=== PATIENT | male | born 1970 | race Caucasian/White ===

== ENCOUNTER 2021-04-27 10:29 | Emergency (ER) | payer SELFPAY ==
--- NOTE | ~2021-04-27 | XR_ITS ---
EXAMINATION: XR foot RT 2V, XR ankle RT 2V EXAM DATE: 04/27/2021 12:15 INDICATION: Initial encounter following injury, with pain of the right foot, ankle. TECHNIQUE: Right foot frontal and lateral projections. Right ankle frontal and lateral projections. There is no prior study for comparison. FINDINGS: Acute closed posttraumatic comminuted fractures through the right calcaneus extending towa rd the posterior aspect of the subtalar joint. Up to 5 mm gap between portions of fracture fragments. The ankle mortise appears intact. Tarsal, metatarsal bones, forefoot are unremarkable. IMPRESSION: Comminuted right calcaneal fracture; orthopedic consult. Reviewed, dictated and finalized at location A. IMPRESSION: Comminuted right calcaneal fracture; orthopedic consult.
[2021-04-27] MEDS: KETOROLAC (*BKC) 60 MG/2 ML VIAL IM (12:05)
[2021-04-27 12:20] VITALS: BP 135/80; PULSE 60; RESP 20; TEMP 36.9; O2SAT 100
--- NOTE | 2021-04-27 12:58 | ED.LOWEXIN ---
HPI - Extremity Injury (Lower) General Chief Complaint: Extremity Injury, Lower Stated Complaint: r foot/ankle injury Time Seen by Provider: 04/27/21 10:34 Source: patient and family Mode of arrival: other ( crutches) Limitations: no limitations History of Present Illness HPI Narrative: this is a 50-year-old male with some right heel pain after he jumped off a ladder about 4 rungs up landing directly on his heel causing pain and swelling, this occurred yesterday and did not take any pain medicine currently there is no numbness or tingling has a strong brisk pedal pulse of the heel is swollen and tender with palpation with no numbness or tingling. complaint: foot injury Injury: Right: foot ( swollen and tender) Type of Injury: blunt Place: home Severity: severe Severity scale (1-10): 8 Relieving factors: immobilization Exacerbating factors: weight bearing Context: fall Associated symptoms: swelling and unable to bear weight Related Data Allergies Allergy/AdvReac Type Severity Reaction Status Date / Time No Known Allergies Allergy Verified 04/27/21 12:28 Review of Systems Review of Systems: All systems reviewed & are unremarkable except as noted in HPI and below PMFSH Past Medical History Medical History Patient denies medical problems Social History Social History Gender identity (if verbalized by the patient): Male Exam Const: General: no acute distress Orientation/consciousness: patient oriented x3 HENMT: Head: normal to inspection Eyes: Conjunctivae: conjunctivae normal Pupils: Equal, round and reactive pupils present EOM: EOMs intact bilaterally Neck: Neck: normal visual inspection, no lymphadenopathy and no meningeal signs Chest: Chest palpation & inspection: normal inspection of the chest Resp: Effort & Inspection: normal respiratory effort Cardio: Rate: regular rate Rhythm: regular rhythm GI: GI Palp: Yes Soft to palpation Skin: General skin exam: normal color Rashes: no rashes Neuro: General: patient oriented x3, moves all extremities and no meningeal signs Extrem: Other: right heel and ankle swelling with pain with palpation and ambulating. Psych: Mental Status: mental status grossly normal Affect: normal affect Course Course Emergency Course: Reassessment of patient pain level has improved, talk to Orthopedics and suggest a well-padded splint with follow-up in their office on Thursday. Vital Signs Vital signs: Vital Signs Temperature 36.9 C 04/27/21 12:20 Pulse Rate 60 04/27/21 12:20 Respiratory Rate 20 04/27/21 12:20 Blood Pressure 135/80 04/27/21 12:20 Pulse Oximetry 100 04/27/21 12:20 Temperature 36.9 C 04/27/21 12:20 Pulse Rate 60 04/27/21 12:20 Respiratory Rate 20 04/27/21 12:20 Blood Pressure 135/80 04/27/21 12:20 Pulse Oximetry 100 04/27/21 12:20 Critical Care Time Critical Care Time Critical Care Time: No Discharge Plan Discharge Clinical Impression: Closed right calcaneal fracture Qualifiers: Encounter type: initial encounter Calcaneus location: unspecified portion of calcaneus Fracture alignment: displaced Qualified Code(s): S92.001A - Unspecified fracture of right calcaneus, initial encounter for closed fracture Patient Disposition: Home, Self-Care Condition: Stable Instructions: Antibiotic Form, Calcaneal Fracture (ED) Additional Instructions: advised to take medicine as prescribed and keep follow-up appointment with orthopedist on Thursday. Prescriptions: New oxycodone-acetaminophen [Percocet] 5-325 mg tablet 1 tablet PO Q6H PRN (Reason: pain) Qty: 20 RF: 0 Follow-up/Referrals: Adele Clarke MD [Primary Care Provider] - Time of Disposition: 13:04
[2021-04-27 13:42] VITALS: BP 127/84; PULSE 64; RESP 20; TEMP 36.7; O2SAT 98
== END 2021-04-27 13:40 | disposition home or self-care (01) ==
PROVIDERS: Emergency Provider Emergency Medicine; PCP Internal Medicine
DX: S92.001A Unspecified fracture of right calcaneus, initial encounter for closed fracture (principal); Y93.39 Activity, other involving climbing, rappelling and jumping off
CPT/HCPCS: 29515; 73600; 73620; 96372; 99283; 99284; J1885